=== PATIENT | male | born 1970 | race Caucasian/White ===

== ENCOUNTER 2018-09-14 17:02 | Emergency (ER) | payer MEDICARE, OTHER ==
[~2018-09-14] VITALS: Ht 175.3 cm; Wt 92.1 kg
[~2018-09-14 17:02] MED LIST: ANTIVERT25 MG PO; ASCORBIC ACID PO; B-12 IM; CHOLECALCIFEROL PO; DOXYCYCLINE PO; FISH OIL 1,0001 EAC2 PO; HYDROCODON-ACE1 EAC9 PO; IRON PO; LIPITOR20 MG PO; PRILOSEC40 MG PO; TYLENOL WITH C1 EACH PO; VIT K PO; VIT. D PO; VITAMIN D PO; [UNRECOGNIZED DRUG - OTHER] IV; [UNRECOGNIZED DRUG - OTHER] PO
== END 2018-09-14 18:05 | disposition home or self-care (01) ==
LOC: ER 17:02
DX: M79.631 Pain in right forearm (principal); K50.90 Crohn's disease, unspecified, without complications
CPT/HCPCS: 99283

== ENCOUNTER → 2021-06-25 | Outpatient (CLI) | payer MEDICARE, OTHER | LOC: CT 13:24 | PROVIDERS: ATTEND Internal Medicine Critical Care Medicine | DX: R05.9 Cough, unspecified (principal); J32.9 Chronic sinusitis, unspecified; J34.2 Deviated nasal septum | CPT/HCPCS: 70486 ==

== ENCOUNTER → 2021-12-20 | Day surgery (SDC) | payer MEDICARE, OTHER ==
[~2021-12-20] MED LIST changes: +FENTANYL CITRATE/PF 100MCG/2 ML INJ ONE; +HYOSCYAMINE SULFATE 0.5 MG/ML INJ ONE; +LIDOCAINE HCL 2% LOCAL INJ 5 ML SDV VIAL INJ ONE; +MIDAZOLAM HCL 2 MG/2 ML VIAL ONE; +PROPOFOL IV EMULSION 10 MG/ML 20 ML VIAL ONE
[2021-12-20 10:25] VITALS: BP 114/75
== END | disposition home or self-care (01) ==
LOC: OR 07:47
PROVIDERS: ATTEND Internal Medicine Gastroenterology
DX: K50.90 Crohn's disease, unspecified, without complications (principal); K63.5 Polyp of colon; K63.3 Ulcer of intestine; K57.30 Diverticulosis of large intestine without perforation or abscess without bleeding; K64.8 Other hemorrhoids; Z98.0 Intestinal bypass and anastomosis status; K21.9 Gastro-esophageal reflux disease without esophagitis; E78.00 Pure hypercholesterolemia, unspecified; Z88.6 Allergy status to analgesic agent; Z01.810 Encounter for preprocedural cardiovascular examination; Z01.812 Encounter for preprocedural laboratory examination; Z20.822 Contact with and (suspected) exposure to COVID-19; Z68.30 Body mass index [BMI] 30.0-30.9, adult; Z79.899 Other long term (current) drug therapy
CPT/HCPCS: 36415 ×2; 45380; 45385; 83993; 86141; 88305; 93005; J1980; J2001; J2704; U0002; 45378; J2250; J3010

== ENCOUNTER 2022-06-03 09:47 | Emergency (ER) | payer MEDICARE, OTHER ==
[~2022-06-03] VITALS: Ht 175.3 cm; Wt 92.1 kg
[~2022-06-03 09:47] MED LIST changes: +ALLEGRA ALLERGY60 MG PO; -FENTANYL CITRATE/PF 100MCG/2 ML INJ ONE; +FEROSUL325 MG PO; +FLONASE ALLERG9.9 ML INH; -HYOSCYAMINE SULFATE 0.5 MG/ML INJ ONE; -LIDOCAINE HCL 2% LOCAL INJ 5 ML SDV VIAL INJ ONE; -MIDAZOLAM HCL 2 MG/2 ML VIAL ONE; +MULTI-VITAMIN1 EACH PO; -PROPOFOL IV EMULSION 10 MG/ML 20 ML VIAL ONE; +VITAMIN C500 MG PO
[2022-06-03] MEDS ORDERED: METHYLPREDNISOLONE SOD SUCC 125 MG/2ML VIAL IV STA (10:01)
[2022-06-03] MEDS ORDERED: ONDANSETRON HCL INJ 2MG/ML 2ML 2 MG/ML VIAL IV STA (10:01)
[2022-06-03] MEDS ORDERED: SODIUM CHLORIDE 0.9% 1000ML 1,000 ML IV STA (10:01)
[2022-06-03 10:13] LABS: BASOPHILS % 0.3 % (0.0-1.0); EOSINOPHILS % 0.3 % (0.0-6.0); HEMATOCRIT 54.7 % (38.2-49.6); HEMOGLOBIN 16.8 g/dL (14.0-18.0); LYMPHOCYTES # (AUTO) 1.2 (1.0-3.2); LYMPHOCYTES % 9.2 % (18.0-39.1); MEAN CORPUSCULAR HGB CONC 30.7 g/dL (31-35); MEAN CORPUSCULAR VOLUME 87.8 fL (81-99); MONOCYTES # (AUTO) 1.1 (0.2-0.8); MONOCYTES % 8.4 % (4.4-11.3); NEUTROPHILS # (AUTO) 10.2 (2.1-6.9); PLATELET COUNT 210 x10e3/uL (140-360); RED BLOOD COUNT 6.23 x10e6/uL (4.3-5.7); RED CELL DISTRIBUTION WIDTH 13.9 % (11.7-14.4)
[2022-06-03 10:39] LABS: ALBUMIN 4.7 g/dL (3.5-5.0); ALBUMIN/GLOBULIN RATIO 1.3 (0.8-2.0); ANION GAP 18.3 mmol/L (8-16); CALCIUM 8.7 mg/dL (8.4-10.2); CREATININE, SERUM 1.61 mg/dL (0.72-1.25); POTASSIUM 3.3 mmol/L (3.5-5.1)
[2022-06-03] MEDS ORDERED: POTASSIUM CHLORIDE 20 MEQ TAB CR PO STA (10:46)
[2022-06-03] MEDS ORDERED: PREDNISONE20 MG PO (11:05)
[2022-06-03] MEDS ORDERED: DICYCLOMINE HCL20 MG PO (11:05)
[2022-06-03] MEDS ORDERED: ONDANSETRON ODT4 MG PO (11:05)
[2022-06-03 11:56] VITALS: BP 141/98
== END 2022-06-03 11:20 | disposition home or self-care (01) ==
LOC: ER 09:53
DX: R19.7 Diarrhea, unspecified (principal); N28.9 Disorder of kidney and ureter, unspecified; R11.0 Nausea; Z98.0 Intestinal bypass and anastomosis status
CPT/HCPCS: 36415; 80053; 83735; 85025; 99284; C9113; J2405; J2930; J7030

== ENCOUNTER 2022-11-02 10:18 | Emergency (ER) | payer MEDICARE, OTHER ==
[~2022-11-02] VITALS: Ht 175.3 cm; Wt 88.5 kg
[~2022-11-02 10:18] MED LIST changes: +DICYCLOMINE HCL20 MG PO; +ONDANSETRON ODT4 MG PO; +PREDNISONE20 MG PO
[2022-11-02] MEDS ORDERED: ONDANSETRON HCL INJ 2MG/ML 2ML 2 MG/ML VIAL IV STA (10:31)
[2022-11-02] MEDS ORDERED: SODIUM CHLORIDE 0.9% 1000ML 1,000 ML IV ONE (10:45)
[2022-11-02 11:02] LABS: BASOPHILS # (AUTO) 0.1 (0.0-0.1); BASOPHILS % 1.1 % (0.0-1.0); EOSINOPHILS # (AUTO) 0.1 (0.0-0.4); EOSINOPHILS % 1.7 % (0.0-6.0); HEMATOCRIT 49.2 % (38.2-49.6); HEMOGLOBIN 16.3 g/dL (14.0-18.0); LYMPHOCYTES # (AUTO) 1.4 (1.0-3.2); LYMPHOCYTES % 19.5 % (18.0-39.1); MEAN CORPUSCULAR HEMOGLOBIN 29.7 pg (28-32); MEAN CORPUSCULAR HGB CONC 33.1 g/dL (31-35); MEAN CORPUSCULAR VOLUME 89.8 fL (81-99); MONOCYTES # (AUTO) 0.5 (0.2-0.8); MONOCYTES % 6.8 % (4.4-11.3); NEUTROPHILS % 70.2 % (38.7-80.0); PLATELET COUNT 138 x10e3/uL (140-360); RED BLOOD COUNT 5.48 x10e6/uL (4.3-5.7); RED CELL DISTRIBUTION WIDTH 15.7 % (11.7-14.4)
[2022-11-02 11:15] LABS: ALBUMIN 3.8 g/dL (3.5-5.0); ALBUMIN/GLOBULIN RATIO 1.4 (0.8-2.0); ANION GAP 11.2 mmol/L (8-16); CALCIUM 9.3 mg/dL (8.4-10.2); CREATININE, SERUM 1.02 mg/dL (0.72-1.25); POTASSIUM 4.2 mmol/L (3.5-5.1)
[2022-11-02] MEDS ORDERED: IOPAMIDOL 370 MG/ML 100 ML INFUS..BTL INJ ONE (11:31)
[2022-11-02 11:37] LABS: CLARITY,URINE CLEAR (CLEAR); COLOR,URINE YELLOW (YELLOW); KETONES,URINE NEGATIVE (NEGATIVE); LEUKOCYTE ESTERASE ,URINE NEGATIVE (NEGATIVE); NITRITE,URINE NEGATIVE (NEGATIVE); PROTEIN,URINE DIPSTICK NEGATIVE (NEGATIVE); URINE UROBILINOGEN 0.2 mg/dL (0.2 - 1)
[2022-11-02 11:49] LABS: RBC,URINE 0-5 /HPF (0-5)
[2022-11-02] MEDS ORDERED: PREDNISONE20 MG PO (13:54)
== END 2022-11-02 14:00 | disposition home or self-care (01) ==
LOC: ER 10:25
DX: K62.5 Hemorrhage of anus and rectum (principal); Z87.19 Personal history of other diseases of the digestive system
CPT/HCPCS: 36415; 74177; 80053; 81001; 83690; 85025; 99284; J2405; J7030; Q9967

== ENCOUNTER → 2025-03-11 | Day surgery (SDC) | payer MEDICARE, OTHER ==
[~2025-03-11] MED LIST changes: +CALCIUM ACETAT667 MG PO; +GLUCAGON FOR INJ 1 MG VIAL ONE; +HYOSCYAMINE SULFATE 0.5 MG/ML INJ ONE; +LACTATED RINGER'S 1,000 ML ONE; +LIDOCAINE HCL 2% LOCAL INJ 5 ML SDV VIAL INJ ONE; +MAGNESIUM OXID400 MG PO; +POTASSIUM CHLO10 ME1 PO; +PROPOFOL IV EMULSION 10 MG/ML 20 ML VIAL ONE; +PROPOFOL IV EMULSION 50 ML IV ONE
[2025-03-11 08:48] VITALS: TEMP 97.7
[2025-03-11 09:15] VITALS: BP 132/79; PULSE 52; RESP 18; O2SAT 98
== END | disposition home or self-care (01) ==
LOC: OR 05:36
PROVIDERS: ATTEND Internal Medicine Gastroenterology
DX: K50.90 Crohn's disease, unspecified, without complications (principal); D12.2 Benign neoplasm of ascending colon; Z98.0 Intestinal bypass and anastomosis status; K63.3 Ulcer of intestine; K57.30 Diverticulosis of large intestine without perforation or abscess without bleeding; K64.8 Other hemorrhoids; K21.9 Gastro-esophageal reflux disease without esophagitis; D64.9 Anemia, unspecified; I10 Essential (primary) hypertension; R00.1 Bradycardia, unspecified; Z71.89 Other specified counseling; Z88.6 Allergy status to analgesic agent; Z88.0 Allergy status to penicillin; Z01.810 Encounter for preprocedural cardiovascular examination; Z68.29 Body mass index [BMI] 29.0-29.9, adult; Z71.3 Dietary counseling and surveillance
CPT/HCPCS: 45380; 45385; 83993; 86140; 88305; 88342; 93005; J1610; J1980; J2003; J2704 ×2; J7121; 45378